=== PATIENT | female | born 1970 | race African-American/Black ===

== ENCOUNTER 2016-08-06 15:08 | Emergency (ER) | payer MEDICAID ==
[~2016-08-06] VITALS: Ht 160 cm; Wt 58.1 kg
[2016-08-06 16:45] VITALS: BP 126/77
[2016-08-06] MEDS ORDERED: KETOROLAC TROMETH 60MG/2ML VIAL IM ONE (17:30)
== END 2016-08-06 18:33 | disposition home or self-care (01) ==
LOC: ER 15:16
DX: S16.1XXA Strain of muscle, fascia and tendon at neck level, initial encounter (principal); S00.531A Contusion of lip, initial encounter; M43.16 Spondylolisthesis, lumbar region; V49.9XXA Car occupant (driver) (passenger) injured in unspecified traffic accident, initial encounter; Y93.89 Activity, other specified; Y99.8 Other external cause status; Y92.89 Other specified places as the place of occurrence of the external cause; Z88.2 Allergy status to sulfonamides
CPT/HCPCS: 72040; 93005; 96372; 99284; J1885

== ENCOUNTER 2016-08-30 15:00 | Emergency (ER) | payer MEDICAID ==
[~2016-08-30] VITALS: Ht 160 cm; Wt 58.1 kg
[2016-08-30 15:14] VITALS: BP 129/84
== END 2016-08-30 16:29 | disposition home or self-care (01) ==
LOC: ER 15:05
DX: J20.9 Acute bronchitis, unspecified (principal); J44.9 Chronic obstructive pulmonary disease, unspecified; M19.90 Unspecified osteoarthritis, unspecified site